=== PATIENT | female | born 1990 | race Caucasian/White ===

== ENCOUNTER 2016-08-17 09:52 | Emergency (ER) | payer OTHER ==
[~2016-08-17] VITALS: Ht 165.1 cm; Wt 71.0 kg
[~2016-08-17 09:52] MED LIST: IBUP-1542 PO; MECL-77 PO; NAPR-260 PO
[2016-08-17 09:55] VITALS: Ht 165.1 cm; Wt 71.0 kg
[2016-08-17] MEDS ORDERED: AZIT250T94 PO (11:28)
[2016-08-17] MEDS ORDERED: SODI30SP2 NS (11:28)
[2016-08-17] MEDS ORDERED: NPH10OT LEFT EAR (11:29)
[2016-08-17] MEDS ORDERED: ACET500C5 PO (11:29)
--- NOTE | 2016-08-17 11:33 | ERD ---
ER Documentation Chief Complaint Date/Time DATE: 08/17/16 TIME: 11:30 Chief Complaint LEFT EARACHE,SORE THROAT X 3 WEEKS HPI Patient is a 26-year-old female with no past medical history who presents to the ED with left earache and sore throat for the last 2 weeks. She states that she has also had a dry and productive cough. Denies fever or chills. Denies abdominal pain, nausea, vomiting or diarrhea. Denies headache or dizziness, neck pain or neck stiffness. She states that she has tried TheraFlu and Ina- [place] and Advil with minimal relief. Denies leg pain or swelling. Denies shortness of breath. Denies seizures or rashes. ROS All systems reviewed and are negative except as per history of present illness. Medications Home Meds Active Scripts Neomycin/Polymyxin/Hydrocort* (Cortisporin* Otic) 10 Ml Susp, 4 DROP LEFT EAR QID for 7 Days, EA Prov:MARYSE MOSCOSO PA-C 08/17/16 Acetaminophen* (Tylophen*) 500 Mg Capsule, 1 CAP PO Q6H Y for PAIN AND OR ELEVATED TEMP, #20 CAP Prov:MARYSE MOSCOSO PA-C 08/17/16 Sodium Chloride (Saline Nasal [place]) 30 Ml [place], 30 ML NS BID for 14 Days, SPRAY Prov:MARYSE MOSCOSO PA-C 08/17/16 Azithromycin* (Zithromax*) 250 Mg Tablet, 250 MG PO .ZPACK DIRECTED, #6 TAB TAKE 500 MG (2 TABS) THE FIRST DAY THEN 250 MG (1 TAB) DAYS 2-5 Prov:MARYSE MOSCOSO PA-C 08/17/16 Meclizine Hcl* (Meclizine Hcl*) 25 Mg Tablet, 25 MG PO Q8H Y for DIZZINESS, #30 TAB Prov:AVINASH ARGUETA PA-C 02/18/16 Naproxen* (Naprosyn*) 500 Mg Tablet, 500 MG PO BID Y for PAIN AND/OR INFLAMMATION, #30 TAB Prov:AVINASH ARGUETA PA-C 02/18/16 Ibuprofen* (Motrin*) 600 Mg Tab, 600 MG PO Q6, #30 TAB Prov:MURRAY SPANN MD 8/25/16 Allergies Allergies: Coded Allergies: No Known Allergy (Unverified , 02/18/16) PMhx/Soc History of Surgery: Yes (BUNION SX) Anesthesia Reaction: No Hx Neurological Disorder: No Hx Respiratory Disorders: No Hx Cardiac Disorders: No Hx Psychiatric Problems: No Hx Miscellaneous Medical Probl: No Hx Alcohol Use: Yes (SOCIAL) Hx Substance Use: No Hx Tobacco Use: No FmHx Family History: No coronary disease, No diabetes, No other Physical Exam Vitals Vital Signs Date Time Temp Pulse Resp B/P Pulse Ox O2 Delivery O2 Flow Rate FiO2 08/17/16 09:55 97.6 76 18 114/69 98 Physical Exam GENERAL: Well-developed, well-nourished female. Appears in no acute distress. HEAD: Normocephalic, atraumatic. EYES: Pupils are equally reactive bilaterally. EOMs grossly intact. No conjunctival erythema. ENT: Moist mucous membranes. No uvula deviation. No kissing tonsils. No exudates. Slight erythematous left canal with TM clear no mastoid tenderness NECK: Supple. No lymphadenopathy or thyromegaly. No meningismus. negative kernig. negative brudinski. LUNG: Clear to auscultation bilaterally. No rhonchi, wheezing, rales or coarse breath sounds. HEART: Regular rate and rhythm. No murmurs, rubs or gallops. Extremities: Equal pulses bilaterally. No peripheral clubbing, cyanosis or edema. No unilateral leg swelling. NEUROLOGIC: Alert and oriented. Moving all four extremities. 5/5 strength in all extremities. Normal speech. Steady gait. SKIN: Normal color. Warm and dry. No rashes or lesions. Capillary refill < 2 seconds Procedures/MDM ER COURSE: I kept the patient and/or family informed of laboratory and diagnostic imaging results throughout the emergency room course. MEDICAL DECISION MAKING: This is a 26-year-old female who presents with sore throat and ear pain and cough 2 weeks. Vital signs were reviewed. Patient is afebrile. Patient is not hypoxic. Patient is nontoxic or ill-appearing. Patient likely has pharyngitis of viral versus bacterial etiology. Patient also has otitis externa. Due to the length of patient's symptoms I will be treating the patient with antibiotics. Low suspicion for pneumonia, PE, pneumothorax, ACS, epiglottitis, obstruction, TB, pertussis, meningitis, sepsis. Low suspicion for peritonsillar abscess, mononucleosis, dental abscess Low suspicion for malignant otitis externa, TM perforation, mastoiditis, acute otitis media. She does not show signs of respiratory distress or dehydration. DISCHARGE: At this time, patient is stable for discharge and outpatient management with no new complaints during the ER course. Patient was sent home with azithromycin, saline nasal spray, Corticosporin drops and Tylenol. Patient will be discharged home with instructions to recheck for new or worsening symptoms such as fever, nausea, weakness, LOC and to follow up with primary care in the next 1-2 days. Patient was advised to return to the ER for any new or worsening symptoms. Plan was discussed and patient and/or family understands and agrees. Home instructions were given. Departure Diagnosis: Primary Impression: Sore throat Additional Impression: Left ear pain Condition: Stable Patient Instructions: When You Have a Sore Throat, Earache W/O Infection (Adult ) Additional Instructions: Call your primary care doctor TOMORROW for an appointment during the next 1-2 days.See the doctor sooner or return here if your condition worsens before your appointment time. MARYSE MOSCOSO PA-C Aug 17, 2016 11:33
[2016-08-17 11:44] VITALS: RESP 18; TEMP 97.5
== END 2016-08-17 11:44 | disposition home or self-care (01) ==
LOC: FTE 09:52
DX: J02.9 Acute pharyngitis, unspecified (principal)
CPT/HCPCS: 99283